=== PATIENT | male | born 1965 | race Caucasian/White ===

== ENCOUNTER 2017-11-01 14:07 | Emergency (ER) | payer OTHER ==
[~2017-11-01] VITALS: Ht 180.3 cm; Wt 117.6 kg
[~2017-11-01 14:07] MED LIST: ANORO ELLIPTA1 EACH IH; ASPIR-LOW81 MG PO; COMBIVENT RESPIM4 GM IH; HUMIRA40 MG/0.1; HUMIRA40 MG/0.8 SC; KLONOPIN0.5 M1 PO; KLONOPIN1 MG PO; METOPROLOL SUCC50 MG PO; NEXIUM40 MG PO; NORCO 5/3251 TABLET PO; OMEPRAZOLE40 M1 PO; SUCRALFATE1 GM PO; ZONISAMIDE100 MG PO
[2017-11-01 16:34] VITALS: BP 136/93
== END 2017-11-01 16:36 | disposition home or self-care (01) ==
LOC: RME 14:07 → EME 14:07 → RME 16:36
DX: M79.661 Pain in right lower leg (principal); L40.9 Psoriasis, unspecified; I10 Essential (primary) hypertension; J44.9 Chronic obstructive pulmonary disease, unspecified; Z87.19 Personal history of other diseases of the digestive system; Z87.891 Personal history of nicotine dependence
CPT/HCPCS: 93971; 99281; 99284